=== PATIENT | female | born 1985 | race Caucasian/White ===

== ENCOUNTER 2019-08-16 12:22 | Emergency (ER) | payer OTHER ==
[~2019-08-16] VITALS: Ht 167.6 cm; Wt 78.0 kg
[2019-08-16 12:31] VITALS: BP 116/67
--- NOTE | 2019-08-16 12:41 | PHYS DOC ---
Adult General Chief Complaint Chief Complaint: ANKLE PROBLEM HPI HPI Patient is a 33-year-old female who presents to the emergency department for evaluation of right ankle pain after falling down the stairs just [employer]. She denies any other injuries, but is unable to bear weight on her ankle, and is using crutches. She denies any numbness or weakness, or any other pain. She states she injured her right ankle about a year ago, and wanted to make sure that she did not further injure herself. Review of Systems Review of Systems : Denies . Takes OCPs. [] Musculoskeletal: Denies back pain or joint pain other than as noted in the ROS. [] Current Medications Current Medications Current Medications Medications (Trade) Dose Ordered Sig/Yanni Start Time Stop Time Status Last Admin Dose Admin Ibuprofen (Motrin) 600 mg 1X ONCE 08/16/19 12:45 08/16/19 12:46 Allergies Allergies Allergies Coded Allergies Type Severity Reaction Last Updated Verified No Known Drug Allergies 08/16/19 No Physical Exam Physical Exam PHYSICAL EXAM: HEENT: Atruamatic NECK: Supple, normal ROM, non-tender. CARDIAC: Regular Rate and Rhythm LUNGS: Clear Bilaterally EXTREMITIES: There is tenderness to palpation of the right ankle diffusely, most prominently in the soft tissues just distal to the malleolus. The bony malleolar not particularly tender in and of themselves. There is no tenderness to palpation to the distal, mid, or proximal krueger, or the foot. The base the fifth metatarsal is nontender. The Achilles tendon is nontender on the, Carmichael's test is normal. Dorsalis pedis pulse is normal. Remainder the extremities are atraumatic. EKG EKG [] Radiology/Procedures Radiology/Procedures [] Course & Med Decision Making Course & Med Decision Making Pertinent Imaging studies reviewed. (See chart for details) []Ankle x-ray is negative for acute abnormality. Dragon Disclaimer Dragon Disclaimer This electronic medical record was generated, in whole or in part, using a voice recognition dictation system. Departure Departure: Impression: Primary Impression: Ankle sprain Disposition: HOME, SELF-CARE Condition: STABLE Patient Instructions: Ankle Sprain, RICE - Routine Care for Injuries DARYL MACKEY MD Aug 16, 2019 12:41
[2019-08-16] MEDS ORDERED: IBUPROFEN 600 MG TABLET. PO ONE (12:45)
--- NOTE | 2019-08-16 12:54 | RAD ---
EXAM: Right ankle, 3 views. HISTORY: Pain. Fall. COMPARISON: None. FINDINGS: 3 views of the right ankle are obtained. There is no fracture, dislocation or subluxation. There is lateral ankle soft tissue swelling. No osteochondral lesion is seen. IMPRESSION: No acute osseous finding. Electronically signed by: Janel Parekh MD (08/16/2019 12:52 PM) [facility]
== END 2019-08-16 13:03 | disposition home or self-care (01) ==
LOC: ER 12:22
DX: S93.401A Sprain of unspecified ligament of right ankle, initial encounter (principal); W10.8XXA Fall (on) (from) other stairs and steps, initial encounter; Y93.89 Activity, other specified; Y92.89 Other specified places as the place of occurrence of the external cause; Y99.8 Other external cause status
CPT/HCPCS: 73610; 99284